=== PATIENT | female | born 2000 | race Caucasian/White ===

== ENCOUNTER 2024-07-01 11:56 | Outpatient (OUT) | payer MEDICAID, SELFPAY ==
[2024-07-01 12:59] LABS: Basophils Percent Auto 0.5 % (0.2-2.0); Eosinophils Absolute Auto 0.1 10^3/uL (0.0-0.7); Eosinophils Percent Auto 1.4 % (0.9-7.0); Hematocrit 37.4 % (36.0-48.0); Hemoglobin 12.8 g/dL (12.0-16.0); Immature Granulocytes Abs Auto 0.02 10^3/uL (0.00-0.03); Immature Granulocytes Pct Auto 0.2 % (0.0-0.5); Lymphocytes Absolute Auto 1.7 10^3/uL (1.2-3.8); Mean Corpuscular HGB Conc 34.2 g/dL (29.9-35.2); Mean Corpuscular Hemoglobin 29.9 pg (26.7-34.0); Mean Corpuscular Volume 87.4 fL (81.0-99.0); Mean Platelet Volume 9.3 fL (9.5-13.5); Monocytes Absolute Auto 0.6 10^3/uL (0.3-0.8); Monocytes Percent Auto 7.5 % (1.7-12.0); Neutrophils Percent Auto 70.4 % (43.0-75.0); Platelet Count 271 10^3/uL (150-450); Red Blood Count 4.28 10^6/uL (4.20-5.40); Red Cell Distribution Width 13.1 % (11.0-15.0); White Blood Count 8.5 10^3/uL (4.0-11.0)
== END 2024-07-01 11:57 | disposition home or self-care (01) ==
PROVIDERS: PCP Internal Medicine; Visit Provider Otolaryngology
DX: Z01.812 Encounter for preprocedural laboratory examination (principal); S02.2XXB Fracture of nasal bones, initial encounter for open fracture
CPT/HCPCS: 85025

== ENCOUNTER 2024-07-02 12:42 | Day surgery (SDC) | payer MEDICAID, SELFPAY ==
[2024-07-01 12:40] VITALS: BP 101/67; PULSE 79; TEMP 36.4; O2SAT 100; BMI 22.7
[2024-07-02] VITALS (10 sets, daily range): BP systolic 93–116; BP diastolic 59–71; PULSE 58–73; TEMP 36.2–36.3; O2SAT 94–100; BMI 22.5
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
--- OUTSIDE RECORDS SUMMARY | 2024-07-02 12:46 | XMS_ITS | CCD ---
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 Erythrocyte distribution width (RBC) [Ratio] 14.1 % Normal 11.5-15.0 [facility] Comment on above: Performed By: #### C BC, THYR, 2842-3, 88045-0, 18923-7 #### [facility] ([id number]) [address] [place] [address] [address] [place] [address] Hematocrit (Bld) [Volume fraction] 38.4 % Normal 35-47 [facility] Comment on above: Performed By: #### C BC, THYR, 2842-3, 53139-6, 10147-0 #### [facility] ([id number]) [address] [facility] [address] [place] [address] Hemoglobin (Bld) [Mass/Vol] 13.3 g/dL Normal 11.7-15.5 [facility] Comment on above: Performed By: #### C BC, THYR, 2842-3, 22064-1, 42850-9 #### [facility] ([id number]) [address] [facility] [address] [place] [address] MCH (RBC) [Entitic mass] 29.9 pg Normal 27-34 [facility] Comment on above: Performed By: #### Malena BC, THYR, 2842-3, 05325-8, 76764-7 #### [facility] ([id number]) [address] [address] [place] [address] MCHC (RBC) [Mass/Vol] 34.6 g/dL Normal 32-36 [facility] Comment on above: Performed By: #### C BC, THYR, 2842-3, 92753-1, 74965-5 #### [facility] ([id number]) [address] [facility] [address] [place] [address] MCV (RBC) [Entitic vol] 87 fL Normal 80-100 [facility] Comment on above: Performed By: #### C BC, THYR, 2842-3, 50947-9, 56613-5 #### [facility] ([id number]) [address] [place] [address] Platelet mean volume (Bld) [Entitic vol] 7.8 fL Normal 7-12 [facility] Comment on above: Performed By: #### C BC, THYR, 2842-3, 24327-5, 09213-6 #### [facility] ([id number]) [address] [address] [place] [address] Platelets (Bld) [#/Vol] 286 10*3/uL Normal 150-450 [facility] Comment on above: Performed By: #### C BC, THYR, 2842-3, 23449-1, 34065-0 #### [facility] ([id number]) [address] [place] [address] RBC COUNT 4.44 X10E12/L Normal 3.80-5.20 [facility] Comment on above: Performed By: #### C BC, THYR, 2842-3, 42069-3, 88467-0 #### [facility] ([id number]) [address] [address] [place] [address] WBC (Bld) [#/Vol] 6.2 10*3/uL Normal 4.0-11.0 [facility] Comment on above: Performed By: #### C BC, THYR, 2842-3, 54724-1, 29402-8 #### [facility] ([id number]) [address] [facility] [address] [place] [address] DHEA-S [Mass/Vol]on 08-14-19 24 DHEA S 200 ug/dL Normal 18-391 [facility] Comment on above: Performed By: #### 2 191-5 #### [facility] ([id number]) [address] [place] [address] Follitropin Qnon 08-14-2023 FOLLICLE STIM HORMONE 8.0 mIU/mL Normal [facility] Comment on above: Result Comment: NORMAL FEMALE Luteal 1.8-5.1 mIU/mL Follicular 3.8-8.8 mIU/mL Mid Cycle 4.5-22.5 mIU/mL Post Lucina 16.7-113.6 mIU/mL Performed By: #### C BC, THYR, 2842-3, 36879-2, 03274-8 #### [facility] ([id number]) [address] [place] [address] Lutropin Qnon 08-14-2023 LUTEINIZING HORMONE 16.2 mIU/mL Normal [facility] Comment on above: Result Comment: NORMAL FEMALE Follicular 2.1-10.9 mIU/mL Mid Cycle 19.2-103 mIU/mL Luteal 1.2-12.9 mIU/mL Post Cross Anchor 10.9-58.6 mIU/mL Performed By: #### C BC, THYR, 2842-3, 80890-6, 55430-0 #### [facility] ([id number]) [address] [place] [address] Prolactin [Mass/Vol]on 08-14 PROLACTIN 11.8 ng/mL Normal 3.3-26.7 [facility] Comment on above: Performed By: #### Malena BC, THYR, 2842-3, 13098-8, 09217-1 #### [facility] ([id number]) [address] [place] [address] THYROID PROFILEon 08-14-2023 Free T4 [Mass/Vol] 0.74 ng/dL Normal 0.61-1.60 [facility] Comment on above: Performed By: #### Malena BC, THYR, 2842-3, 11133-8, 19285-3 #### [facility] ([id number]) [address] [place] [address] TSH 1.16 uIU/mL Normal 0.49-4.67 [facility] Comment on above: Performed By: #### C BC, THYR, 2842-3, 57515-4, 30355-6 #### [facility] ([id number]) [address] [place] [address] Vital Signs Date Time Vital Sign Value Performing Clinician Facility 08-29-2023 14:38-0500 Body height 162.6 cm Leigh [place] STOKER ERECTOR-CNM Work Phone: [facility] 08-29-2023 14:38-0500 Body mass index (BMI) [Ratio] 20.22 kg/m2 Leigh [place] [employer]OKER ERECTOR-CNM Work Phone: [facility] 08-29-2023 14:38-0500 Body weight 53.43 kg Leigh [place] [employer]OKER ERECTOR-CNM Work Phone: [facility] 08-29-2023 14:38-0500 Diastolic blood pressure 60 mm[Hg] Leigh [place] [employer]OKER ERECTOR-CNM Work Phone: [facility] 08-29-2023 14:38-0500 Systolic blood pressure 112 mm[Hg] Leigh [place] [employer]OKER ERECTOR-CNM Work Phone: [facility] 08-28-2023 15:12-0500 Body height 154.9 cm Amada Hemmer PA Work Phone: [facility] 08-28-2023 15:12-0500 Body mass index (BMI) [Ratio] 22.03 kg/m2 Amada Hemmer PA Work Phone: [facility] 08-28-2023 15:12-0500 Body weight 52.89 kg Amada Hemmer PA Work Phone: [facility] 08-28-2023 15:12-0500 Diastolic blood pressure 78 mm[Hg] Amada Hemmer PA Work Phone: [facility] 08-28-2023 15:12-0500 Heart rate 71 /min Amada Hemmer PA Work Phone: [facility] 08-28-2023 15:12-0500 Respiratory rate 16 /min Amada Hemmer PA Work Phone: [facility] 08-28-2023 15:12-0500 SaO2% (BldA) [Mass fraction] 97 % Amada Hemmer PA Work Phone: [facility] 08-28-2023 15:12-0500 Systolic blood pressure 102 mm[Hg] Amada Hemmer PA Work Phone: [facility] 08-12-2023 14:02-0500 Body mass index (BMI) [Ratio] 19.91 kg/m2 [facility] 08-12-2023 14:02-0500 Body weight 52.62 kg [facility] 08-12-2023 14:02-0500 Diastolic blood pressure 56 mm[Hg] [facility] 08-12-2023 14:02-0500 Systolic blood pressure 110 mm[Hg] [facility] Encounters Encounter Date Encounter Type Care Provider Facility Start: 06-28-2024 End: 06-28-2024 Emergency department patient visit ABIEL [facility] Start: 02-26-2024 End: 02-26-2024 ambulatory JULIAN SAHA Not Available Start: 08-29-2023 End: 08-29-2023 ambulatory [facility] Start: 08-29-2023 Encounter for gynecological examination (general) (routine) without abnormal findings [facility] Start: 08-29-2023 End: 08-29-2023 Patient encounter status Leigh Gamble APRN-CNBianca Work Phone: [facility] Work Phone: Start: 08-29-2023 End: 08-29-2023 Periodic preventive med est patient 18-39 yrs Leigh Gamble [employer]OKER ERECTOR-CNM Work Phone: [facility] Comment on above: Well female exam wit h routine gynecological exam (Primary Dx); Screening for cervical cancer Start: 08-29-2023 End: 08-29-2023 ambulatory LEIGH GAMBLE [facility] Start: 08-28-2023 End: 08-28-2023 Office outpatient new 30 minutes Amada Solomon PA Work Phone: [facility] Comment on above: Vasovagal syncope (P rimary Dx); Autistic spectrum disorder (CMS/HCC); Generalized anxiety disorder (CMS/HCC) Start: 08-28-2023 End: 08-28-2023 ambulatory AMADA SOLOMON Not Available Start: 08-28-2023 Bamboo flowsheet Amada alfaro PA Work Phone: [facility] Start: 08-28-2023 Bamboo flowsheet Amada Wei r PA Work Phone: [facility] Start: 08-14-2023 End: 08-14-2023 ambulatory [facility] Bianca [facility] Start: 08-12-2023 End: 08-12-2023 [facility] Start: 08-12-2023 End: 08-12-2023 Office outpatient new 20 minutes [facility] Ob Guest Relations Officer [facility] Comment on above: Irregular menses (Pr imary Dx) Start: 01-11-2019 End: 08-28-2023 Patient encounter status Pfws Guest Relations Officer [facility] Work Phone: Procedures Date Procedure Procedure Detail Performing Clinician Start: 08-29-2023 Adult depression screening assessment Leigh Gamble [employer] E[employer]OR-CNM Work Phone: Start: 07-10-2021 Adult depression screening assessment [facility] Guest Relations Officer Plan of Treatment Date Care Activity Detail Author Start: 08-29-2024 Adult BMI Screening Adult BMI Screen ing [facility] Start: 08-29-2024 Depression Screening Depression Scre ening [facility] Start: 08-29-2024 Tobacco Screening Tobacco Screening [facility] Start: 08-12-2024 Adult BMI Screening Adult BMI Screen ing [facility] Start: 08-12-2024 Tobacco Screening Tobacco Screening [facility] Start: 02-26-2024 End: 02-26-2024 Patient encounter procedure 02/26/2024 3:00 PM EDT Office Visit [facility] [address] [facility] [address] [place] [address] Julian Saha MD [address] [facility] [address] [place] [address] [facility] Start: 02-17-2024 DTaP,Tdap and Td Vaccines (7 - Td or Tdap) DTaP,Tdap and Td Vaccines (7 - Td or Tdap) [facility] Start: 08-29-2023 End: 08-29-2023 Patient encounter procedure 08/29/2023 2:30 PM EST [facility] [address] [place] [address] [facility] Start: 08-28-2023 End: 08-28-2023 Patient encounter procedure 08/28/2023 3:00 PM EST Office Visit [facility] [address] [facility] [address] [place] [address] Amada Solomon PA [address] [facility] [address] [place] [address] Arrived [facility] Comment on above: Arrived Start: 03-22-2023 COVID-19 Vaccine () COVID-19 Vaccine () [facility] Start: 03-22-2023 Influenza vaccination P [facility] Start: 2022 Screening for malign ant neoplasm of cervix Pap Smear [facility] Start: 07-10-2022 [facility] End: 08-12-2024 CBC panel - Blood by Automated count CBC Lab Routine Irregular menses 1 Occurrences starting 08/12/2023 until 08/12/2024 [facility] Comment on above: 1 Occurrences starti ng 08/12/2023 until 08/12/2024 End: 08-29-2024 Cytopathology procedure, preparation of smear, genital source Pap Smear Pathology and Cytology Routine Screening for cervical cancer 1 Occurrences starting 08/29/2023 until 08/29/2024 [employer] Work Phone: Comment on above: 1 Occurrences starti ng 08/29/2023 until 08/29/2024 End: 08-12-2024 DHEA-sulfate DHEA-sulfate Lab Routine Irregular menses 1 Occurrences starting 08/12/2023 until 08/12/2024 [facility] Comment on above: 1 Occurrences starti ng 08/12/2023 until 08/12/2024 End: 08-12-2024 Follicle stimulating hormone Follicle stimulating hormone Lab Routine Irregular menses 1 Occurrences starting 08/12/2023 until 08/12/2024 [facility] Comment on above: 1 Occurrences starti ng 08/12/2023 until 08/12/2024 End: 08-12-2024 Luteinizing hormone Luteinizing hormone Lab Routine Irregular menses 1 Occurrences starting 08/12/2023 until 08/12/[address] [facility] [employer] Comment on above: 1 Occurrences starti ng 08/12/2023 until 08/12/2024 End: 08-12-2024 Prolactin Prolactin Lab Routine Irregular menses 1 Occurrences starting 08/12/2023 until 08/12/[address] [facility] [employer] Comment on above: 1 Occurrences starti ng 08/12/2023 until 08/12/2024 End: 08-12-2024 Thyroid profile includes TSH FT4 Thyroid profile includes TSH FT4 Lab Routine Irregular menses 1 Occurrences starting 08/12/2023 until 08/12/2024 [facility] Work Phone: Comment on above: 1 Occurrences starti ng 08/12/2023 until 08/12/2024 Immunizations Immunization Date Immunization Notes Care Provider Fa cili 12-03-2020 COVID-19, mRNA, LNP- S, PF, 100mcg/0.5mL Dose [facility] Guest Relations Officer [facility] 11-05-2020 COVID-19, mRNA, LNP- S, PF, 100mcg/0.5mL Dose [facility] Guest Relations Officer [facility] 12-30-2018 meningococcal oligosaccharide (groups A, C, Y and W-135) diphtheria toxoid conjugate vaccine (MCV4O) [facility] 12-20-2016 meningococcal oligosaccharide (groups A, C, Y and W-135) diphtheria toxoid conjugate vaccine (MCV4O) [facility] 02-16-2014 tetanus toxoid, redu addi diphtheria toxoid, and acellular pertussis vaccine, adsorbed [facility] 10-30-2006 hepatitis A vaccine, adult dosage [facility] 10-30-2006 hepatitis A vaccine, pediatric/adolescent dosage, 2 dose schedule Amada [place] Work Phone: [facility] 02-13-2006 diphtheria, tetanus toxoids and acellular pertussis vaccine [facility] 02-13-2006 measles, mumps and rubella virus vaccine [facility] 02-13-2006 poliovirus vaccine, inactivated [facility] 12-04-2002 diphtheria, tetanus toxoids and acellular pertussis vaccine [facility] 12-04-2002 diphtheria, tetanus toxoids and acellular pertussis vaccine, unspecified formulation Amada [place] Work Phone: [facility] 12-04-2002 haemophilus influenz ae type b vaccine, conjugate unspecified formulation [facility] 09-25-2002 measles, mumps and rubella virus vaccine [facility] 09-25-2002 poliovirus vaccine, inactivated [facility] 09-25-2002 varicella virus vaccine [facility] 03-20-2002 diphtheria, tetanus toxoids and acellular pertussis vaccine [facility] 03-20-2002 diphtheria, tetanus toxoids and acellular pertussis vaccine, unspecified formulation Amada [place] Work Phone: [facility] 03-20-2002 haemophilus influenz ae type b conjugate and Hepatitis B vaccine Amada [place] Work Phone: [facility] 03-20-2002 haemophilus influenz ae type b vaccine, conjugate unspecified formulation [facility] 03-20-2002 hepatitis B vaccine, adult dosage [facility] 03-20-2002 pneumococcal conjuga te vaccine, 7 valent Amada Solomon PA Work Phone: [facility] 03-20-2002 pneumococcal vaccine , unspecified formulation [facility] 01-16-2002 diphtheria, tetanus toxoids and acellular pertussis vaccine [facility] 01-16-2002 diphtheria, tetanus toxoids and acellular pertussis vaccine, unspecified formulation Amada Solomon PA Work Phone: [facility] 01-16-2002 haemophilus influenz ae type b vaccine, conjugate unspecified formulation [facility] 01-16-2002 poliovirus vaccine, inactivated [facility] 2001 diphtheria, tetanus toxoids and acellular pertussis vaccine [facility] 2001 diphtheria, tetanus toxoids and acellular pertussis vaccine, unspecified formulation Amada Solomon PA Work Phone: [facility] 2001 haemophilus influenz ae type b conjugate and Hepatitis B vaccine Amada Hemmer PA Work Phone: [facility] 2001 haemophilus influenz ae type b vaccine, conjugate unspecified formulation [facility] 2001 hepatitis B vaccine, adult dosage [facility] 2001 pneumococcal conjuga te vaccine, 7 valent Amada Solomon PA Work Phone: [facility] 2001 pneumococcal vaccine , unspecified formulation [facility] 2001 poliovirus vaccine, inactivated [facility] 2001 hepatitis B vaccine, adult dosage [facility] NEGATED: Highlighted row has not occurred!07-10-2021 influenza, injectable, quadrivalent, preservative free [facility] Work Phone: Comment on above: Deferred: Patient de cision Payers Date Payer Category Payer Unknown [id number] 2022 Medicaid [id number] 2022 Medicaid [id number] 2001 Unknown [id number] 2.16.8 [id number] 2001 Unknown [id number] 2.16.84 [id number] 2001 Unknown [id number] 2.16.84 [id number] 2001 Unknown [id number] 2.16.84 [id number] 2001 Unknown [id number] 2.16.8 [id number] 2001 Unknown [id number] 2.16.8 [id number] 2001 Unknown [id number] 2.16.8 [id number] Social History Date Type Detail Facility Start: 08-12-2023 End: 08-28-2023 Tobacco smoking status UTIS Never smoked tobacco [facility] Start: 08-12-2023 End: 08-28-2023 Tobacco use and exposure Smokeless tobacco non-user [facility] Start: 08-12-2023 End: 08-29-2023 Alcohol intake Current non-drinker of alcohol (finding) [facility] Start: 09-14-2019 End: 08-28-2023 History of Social function [facility] Start: 09-14-2019 End: 08-28-2023 Alcohol Use Disorder Identification Test - Consumption [AUDIT-C] [facility] Frequency of Alcohol Consumption Never [facility] Start: 2001 Sex Assigned At Not on file [facility] Start: 09-14-2019 Sexual orientation Choose not to disclose [facility] Start: 08-28-2023 Alcohol intake Current drinker of alcohol (finding) [facility] How often to you hav e a drink containing alcohol? Monthly or less [facility] How many standard dr inks containing alcohol do you have on a typical day? 1 or 2 [facility] How often do you hav e 6 or more drinks on 1 occasion? Never [facility] Tobacco smoking stat [facility] Tobacco smoking consumption unknown [facility] History of Present illness Narrative 08-29-2023 Leigh Gamble, [employer] E[employer]OR-CNM - 08/29/2023 2:30 PM EST Note Date & Type Note Facility 08-29-2023 History of Present illness Narrative Subjective Rachel Guerrero is a 23 y.o. female who presents for annual exam. Periods are irregular, sometimes every month and then at times she will skip a month or two. Bleeding usually lasts 6 days. Dysmenorrhea:mild, occurring first 1-2 days of flow. No intermenstrual bleeding, spotting, or discharge. Sexual history is not sexually active. Smoking history: none. History of Domestic abuse: No. Current contraception: abstinence History of abnormal Pap smear: no Last pap: Her mother thinks she had one a few years ago but she is just 23 now. Family history of uterine or ovarian cancer: yes - Great Grandmother had some form of female organ cancer. Regular self breast exam: no Last mammogram: NA Family history of breast cancer: no Family history of colon cancer: no Menstrual History: OB History No data available The following portions of the patient's history were reviewed and updated as appropriate: allergies, current medications, past family history, past medical history, past social history, past surgical history, problem list and medication reconciliation was completed including current medication and post discharge medication. Review of Systems Constitutional: negative Eyes: negative Ears, nose, mouth, throat, and face: negative Respiratory: negative Cardiovascular: negative Gastrointestinal: negative Genitourinary:positive for abnormal menstrual periods Integument/breast: negative. Rash on face Hematologic/lymphatic: negative Musculoskeletal:negative Neurological: negative Behavioral/Psych: negative Endocrine: negative Objective General: alert, appears stated age, and cooperative HEENT Within normal limits, no masses. No thyromegaly. Heart: regular rate and rhythm, S1, S2 normal, no murmur, click, rub or gallop Lungs: clear to auscultation bilaterally Breast: normal appearance, no masses or tenderness Abdomen: soft, non-tender, without masses or organomegaly Vulva: normal, Bartholin's, Urethra, [place]'s normal Vagina: Bleeding: no Discharge: no Cervix: normal appearance Uterus: normal size, anteverted, mobile, non-tender, normal shape and consistency Adnexa: normal adnexa and no mass, fullness, tenderness Lymphatics: No abnormally enlarged lymph nodes. Musculoskeletal: Normal. Skin: Negatives: She does have a rash on her face around her eyebrows and nose area. She also has hirsutism with hair growth on her chest, chin and increased trigonal area. Neuro: mental status, speech normal, alert and oriented x3. She is a little childish acting at times but did very well with pelvic exam. Psychological: normal mood, behavior, speech, dress, and thought processes Scored a 3 on the PHQ9 questionnaire Assessment/Plan: 1. Well female exam with routine gynecological exam No orders of the defined types were placed in this encounter. 2. Screen for cervical cancer Thin prep pap. Rachel was seen today for annual exam. Diagnoses and all orders for this visit: Well female exam with routine gynecological exam Reviewed her prior labs that were done. Her hormone levels appear to be in the normal ranges, not indicating any thyroid problem nor PCOS. Breast self exam technique reviewed and patient encouraged to perform self-exam monthly. We did discuss control pills to help regulate her menses. She has decided to not use anything at the present time. If she changes her mind she will let us know. RTO 1 year. CRISPIN Barnes 08/29/23 1534 documented in this encounter [facility] History of Present illness Narrative 08-28-2023 CLARIBEL Duke - 08/28/2023 3:00 PM EST Note Date & Type Note Facility 08-28-2023 History of Presen t illness Narrative Subjective Patient ID: Rachel Guerrero is a 23 y.o. female who presents to become established. Rachel is present today to establish care. Pt is not having a consistent menstrual cycle. Has seen a recreation supervisor and has follow up tomorrow for PAP. Does have occasional episodes of lightheadedness. Passes out or almost passes out if she has blood work drawn. Does walk daily. Drinks about 20 ounces of water a day. No current outpatient medications on file prior to visit. No current facility-administered medications on file prior to visit. Social History Tobacco Use Smoking status: Never Smokeless tobacco: Never Substance Use Topics Alcohol use: Yes Drug use: Never Family History Problem Relation Name Age of Onset Depression Mother Meniere's disease Mother ADD / ADHD Mother Hepatitis Father Fibromyalgia Father Autism spectrum disorder Brother Diabetes Maternal Grandfather Past Medical History: Diagnosis Date Anxiety Autism (CMS/HCC) History reviewed. No pertinent surgical history. Visit Vitals BP 102/78 Pulse 71 Resp 16 Ht 5' 1 Wt 116 lb 9.6 oz SpO2 97% BMI 22.03 kg/m Smoking Status Never BSA 1.51 m Review of Systems Constitutional: Negative for chills, fatigue and fever. Respiratory: Negative for cough, shortness of breath and wheezing. Cardiovascular: Negative for chest pain and palpitations. Gastrointestinal: Negative for abdominal pain, constipation, diarrhea, nausea and vomiting. Genitourinary: Irregular periods Skin: Negative for rash. Neurological: Positive for light-headedness. Objective Physical Exam Constitutional: General: She is not in acute distress. Appearance: Normal appearance. She is well-developed. HENT: Head: Normocephalic and atraumatic. Eyes: General: No scleral icterus. Conjunctiva/sclera: Conjunctivae normal. Cardiovascular: Rate and Rhythm: Normal rate and regular rhythm. Heart sounds: Normal heart sounds. No murmur heard. Pulmonary: Effort: Pulmonary effort is normal. No respiratory distress. Breath sounds: Normal breath sounds. No wheezing, rhonchi or rales. Skin: General: Skin is warm and dry. Neurological: General: No focal deficit present. Mental Status: She is alert and oriented to person, place, and time. Psychiatric: Mood and Affect: Mood normal. Speech: Speech normal. Behavior: Behavior is cooperative. Comments: Pt has autistic disorder Assessment/Plan Diagnoses and all orders for this visit: Vasovagal syncope Comments: With blood draw After review of circumstances, appears mostly to be related to anytime she has her sugar checked or blood drawn. Advised pt and her mother this is likely Vasovagal syncope and explained why this occurs. Encouraged her to increase her water intake and see if the occasional lightheadedness resolves. I suspect pt is chronically dehydrated. However, if symptoms worsen or do not improve our office would be happy to re-evaluate her and order any testing that may be required. Autistic spectrum disorder (CMS/HCC) This is a chronic medical condition. No concerns at this time. Generalized anxiety disorder (CMS/HCC) This is a chronic medical condition. No concerns at this time. Follow up in about 6 months (around 02/26/2024) for Wellness. documented in this encounter [facility] History of Present illness Narrative 08-12-2023 Izabel Patel APRN-ED - 08/12/2023 2:00 PM EST Note Date & Type Note Facility 08-12-2023 History of Presen t illness Narrative Rachel Guerrero is a 22 y.o.female. Patient's last menstrual period was 08/05/2023.. She presents today for irregular periods. Cycle sometimes skip a month or 2. Cycles have always been irregular and pt.'s mother is inquiring as to why they have not become regular. Pt.'s mother Clementina, relates that there is marital tension and she is uncertain if this is a cause. Clementina relates that pt. Had a pelvic exam a few yrs. Ago but believes it was just because she was getting older. She states [facility] The pt. Denies having any pain except for chapped hands. Pt. Works at [employer] in [place]. Pt. States she does not have a boyfriend or a girlfriend. She denies having a boyfriend or girlfriend. Pt. Denies onset of SIC. She denies inappropriate touch and affirms she is safe. Pt. Recently got a PCP which she has not yet seen. Pt. Reports flow varies from light to heavy and she uses tampons. Menarche: 14 Current contraception:no method OB History No obstetric history on file. MEDICAL HX Past Medical History: Diagnosis Date Acne Anxiety Autism Dermatitis SURGICAL HX Past Surgical History: Procedure Laterality Date NO PAST SURGERIES FAMILY HX Family History Problem Relation Age of Onset Autism Mother Depression Father Autism Brother Diabetes Maternal Grandfather Stroke Maternal Grandfather Kidney disease Maternal Grandfather MEDS No current outpatient medications on file. No current facility-administered medications for this visit. ALLERGIES No Known Allergies Review of Systems Review of Systems As noted in HPI. Objective LMP 08/05/2023 Physical Exam Vitals and nursing note reviewed. Constitutional: Appearance: Normal appearance. She is normal weight. HENT: Head: Normocephalic and atraumatic. Eyes: Conjunctiva/sclera: Conjunctivae normal. Neck: Thyroid: No thyroid mass, thyromegaly or thyroid tenderness. Trachea: Trachea normal. Cardiovascular: Rate and Rhythm: Normal rate and regular rhythm. Heart sounds: Normal heart sounds. Pulmonary: Effort: Pulmonary effort is normal. Breath sounds: Normal breath sounds. Abdominal: General: There is no distension. Palpations: Abdomen is soft. There is no mass. Tenderness: There is no abdominal tenderness. There is no guarding or rebound. Hernia: No hernia is present. Musculoskeletal: Cervical back: Neck supple. No rigidity or tenderness. Lymphadenopathy: Cervical: No cervical adenopathy. Skin: General: Skin is warm and dry. Neurological: General: No focal deficit present. Mental Status: She is alert. Psychiatric: Mood and Affect: Mood normal. Behavior: Behavior normal. Thought Content: Thought content normal. Judgment: Judgment normal. Assessment/Plan: Rachel was seen today for menstrual problem. Diagnoses and all orders for this visit: Irregular menses - Thyroid profile includes TSH FT4; Future - Prolactin; Future - CBC; Future - Follicle stimulating hormone; Future - Luteinizing hormone; Future - DHEA-sulfate; Future Pt. Interviewed alone briefly. Labs as noted above and instructed to get done prior to next appt. In 1-2wks. F/U for annual exam w/PAP Will consider pelvic US based on those findings. Discussed use of depo for menstrual suppression vs. OCP for regulation of menses and pt. Is undecided. Gabriella Mccain, ANA Chan APRN, APRN, CRISPIN Hughes 08/12/23 1504 documented in this encounter [facility] Evaluation note Note Date & Type Note Facility Evaluation note Diagnosis Irregular menses- Primary Irregular menstrual cycle documented in this encounter [facility] Evaluation note Note Date & Type Note Facility Evaluation note Diagnosis Vasovagal syncope- Primary Syncope and collapse Autistic spectrum disorder (CMS/HCC) Autistic disorder, current or active state Generalized anxiety disorder (CMS/HCC) Generalized anxiety disorder documented in this encounter [facility] Evaluation note Note Date & Type Note Facility Evaluation note Diagnosis Well female exam with routine gynecological exam- Primary Routine gynecological examination Screening for cervical cancer Screening for malignant neoplasm of the cervix documented in this encounter [facility] Instructions Note Date & Type Note Facility Instructions Not on filedocumented in this en counter [facility] Instructions Note Date & Type Note Facility Instructions Not on filedocumented in this en counter [facility] Summary Purpose Family History No Family History Records FoundNo Family History Records FoundNo Family History Records Found Advance Directives No Advanced Directives Records FoundNo Advanced Directives Records FoundNo Advanced Directives Records Found Additional Source Comments Reason for Visit (unrecogniz ed section and content) Reason Comments Menstrual Problem Irregular periods Reason Comments Dizziness This has happened wh en her finger has been pricked or getting bloodwork. Also they feel she may have had a seizure one time in either 2021 or 2022. Reason Comments Annual Exam Periods: Irregular, sometimes skipping a month or twoPap: possibly a few years agoContraception: abstinence PHQ-9: 3 INFORMATION SOURCE (unrecogn ized section and content) DATE CREATED AUTHOR 09/02/2023 [facility] DATE CREATED AUTHOR AUTHOR'S ORGANIZ ATION 02/29/2024 [facility] EPIC DATE CREATED AUTHOR AUTHOR'S ORGANIZ ATION 07/01/2024 [facility] FOR RECORDS PERTAINING TO PATIENTS WHO ARE OR HAVE BEEN ENROLLED IN A CHEMICAL DEPENDENCY/SUBSTANCEABUSE PROGRAM, SOME INFORMATION MAY BE OMITTED. This clinical summary was aggregated from multiple sources. Caution should be exercised in using it in the provision of clinical care. This summary normalizes information from multiple sources, and as a consequence, information in this document may materially change the coding, format and clinical context of patient data. In addition, data may be omitted in some cases. CLINICAL DECISIONS SHOULD BE BASED ON THE PRIMARY CLINICAL RECORDS. [employer] [facility]. provides no warranty or guarantee of the accuracy or completeness of information in this document.
[2024-07-02 13:12] LABS: HCG Qualitative NEGATIVE (NEGATIVE); Internal Control Within Normal Limits
[2024-07-02] MEDS: LACTATED RINGER'S SOLUTION 1,000 ML 50 ML IV (14:11)
[2024-07-02] MEDS: OXYMETAZOLINE HCL 0.05% NASAL SPRAY 30 SPRAY NS (14:54)
[2024-07-02] MEDS: ACETAMINOPHEN 325 MG TABLET 650 MG PO (15:35)
== END 2024-07-02 16:30 | disposition home or self-care (01) ==
LOC: SURGOUT 12:42
PROVIDERS: Anesthesiology; PCP Internal Medicine; Visit Provider Otolaryngology
PROC: (CPT 160; principal; 2024-07-02 14:30)
DX: S02.2XXB Fracture of nasal bones, initial encounter for open fracture (principal); V03.90XA Pedestrian on foot injured in collision with car, pick-up truck or van, unspecified whether traffic or nontraffic accident, initial encounter
CPT/HCPCS: 21315; 36415; 84703; J1100; J2250; J2405; J2704; J3010